=== PATIENT | male | born 1930 | race Caucasian/White ===

== ENCOUNTER 2018-10-28 15:54 | Emergency (ER) | payer MEDICARE, BC ==
[~2018-10-28 15:54] MED LIST: Lidocaine 1% 20 ML MDV ONE; Sodium Chloride Irrig Solution 250 ML BOT ONE
[2018-10-28] MEDS ORDERED: Triple Antibiotic Oint 1 GM Packet ONE (17:27)
--- NOTE | 2018-10-28 18:39 | CT ---
NONCONTRAST CT HEAD: 10/28/18 HISTORY: Trauma. COMPARISON: 06/19/18. FINDINGS: Again noted is confluent diminished attenuation throughout the periventricular white matter which is nonspecific but likely reflective of severe chronic small vessel ischemic changes. Low density foci a re again seen in each basal ganglia which may represent small bilateral remote lacunar infarctions. S mall remote lacunar infarctions again seen in the left thalamus. There is no evidence of an acute cor tical infarction, hemorrhage, mass effect or midline shift. Diffuse cerebral volume loss is present. Ventricular system is normal in size, shape and position for the degree of sulcal atrophy. No calvarial fracture is seen. There is mild scalp soft tissue swelling in the most inferior aspect a nterior frontal region. There is suggestion of slight soft tissue irregularity which may be related t o laceration involving the inferior anterior frontal scalp soft tissues. Dense vascular calcifications are seen in the carotid siphons. IMPRESSION: 1. No acute intracranial abnormalities demonstrated. 2. Severe chronic small vessel ischemic changes. 3. Cerebral volume loss. 4. 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 1. POS: [facility]
--- NOTE | 2018-10-28 18:43 | CT ---
CT CERVICAL SPINE 10/28/18 COMPARISON: 12/16/17 HISTORY: Trauma, injury, pain. TECHNIQUE: Axial CT imaging at 2.5 mm intervals from skull base through the lung apices with coronal and sagitta l reformatted imaging. FINDINGS: The visualized lung apices are unremarkable. There are scattered atherosclerotic calcification of the carotid system bilaterally. There is mild degenerative change at the atlantoaxial interspace. The craniocervical junction, the atlantoaxial interspace, and the cervicothoracic junction demonstrat e no acute findings. There is disc space narrowing with degenerative end plate change at C3-4, C4-5, C5-6 and C6-7. Occipital condyles, dens, and C1-2 articulation demonstrate no acute findings. There i s multilevel mid cervical spine facet and uncovertebral osteophyte formation, stable. No displaced fracture. IMPRESSION: Multilevel degenerative change, stable when compared to prior imaging. No acute fracture or evidence of dislocation is appreciated. POS: [facility]
== END 2018-10-28 17:45 | disposition home or self-care (01) ==
LOC: MADERS 15:54
DX: S01.81XA Laceration without foreign body of other part of head, initial encounter (principal); I10 Essential (primary) hypertension; G30.9 Alzheimer's disease, unspecified; F02.80 Dementia in other diseases classified elsewhere, unspecified severity, without behavioral disturbance, psychotic disturbance, mood disturbance, and anxiety; E78.5 Hyperlipidemia, unspecified; Z86.73 Personal history of transient ischemic attack (TIA), and cerebral infarction without residual deficits; Z79.899 Other long term (current) drug therapy; W18.30XA Fall on same level, unspecified, initial encounter
CPT/HCPCS: 12011; 70450; 72125; J2001